=== PATIENT | male | born 1945 | race Caucasian/White ===

== ENCOUNTER 2016-09-23 08:52 | Inpatient (IN) | payer OTHER ==
[2016-09-23 11:00] VITALS: BMI 20.5
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
[2016-09-23] MEDS ORDERED: IBUPROFEN 400 MG TABLET (FP) PO PRN (13:13)
[2016-09-23] MEDS ORDERED: ACETAMINOPHEN 325 MG TABLET (FP) PO PRN (13:13)
[2016-09-23] MEDS ORDERED: diphenhydrAMINE HCL 50 MG CAPSULE PO PRN (13:13)
[2016-09-23] MEDS ORDERED: P-EPHED 60MG/TRIPROLIDI 2.5MG TABLET PO PRN (13:13)
[2016-09-23] MEDS ORDERED: LOPERAMIDE HCL 2 MG CAPSULE PO PRN (13:13)
[2016-09-23] MEDS ORDERED: guaiFENesin/D-METHORPHAN HB 10 ML UNIT-DOSE CUPS PO PRN (13:13)
[2016-09-23] MEDS ORDERED: MAGNESIUM HYDROX 2400MG/30ML ORAL SUSPENSION 30 ML CUP PO PRN (13:13)
[2016-09-23] MEDS ORDERED: MENTHOL/PHENOL 1 EACH UD MM PRN (13:13)
[2016-09-23] MEDS ORDERED: MAGNESIUM CITRATE 300 ML BOTTLE PO PRN (13:13)
[2016-09-23] MEDS ORDERED: chlordiazePOXIDE HCL 25 MG CAPSULE PO PRN (13:13)
[2016-09-23] MEDS ORDERED: MAG HYDROX/AL HYDROX/SIMETH 30 ML UNIT-DOSE CUP PO PRN (13:13)
[2016-09-23] MEDS ORDERED: hydrOXYzine PAMOATE 50 MG CAPSULE (FP) PO PRN (13:13)
[2016-09-23] MEDS ORDERED: chlordiazePOXIDE HCL 25 MG CAPSULE PO ONE (14:00)
[2016-09-23] MEDS: chlordiazePOXIDE HCL 25 MG CAPSULE PO SCH ×2 (17:23→22:15)
[2016-09-23 17:49] LABS: URINE APPEARANCE CLEAR; URINE BILIRUBIN NEGATIVE (NEGATIVE); URINE BLOOD NEGATIVE (NEGATIVE); URINE COLOR LTYELLOW; URINE GLUCOSE (UA) 1+ (NEGATIVE); URINE KETONE NEGATIVE (NEGATIVE); URINE LEUK ESTERASE NEGATIVE (NEGATIVE); URINE NITRITE NEGATIVE (NEGATIVE); URINE PROTEIN NEGATIVE (NEGATIVE); URINE UROBILINOGEN NEGATIVE E.U./dl (0.2-1.0)
[2016-09-23] MEDS: THIAMINE HCL 100 MG TABLET (FP) PO SCH (22:16)
[2016-09-24] MEDS: chlordiazePOXIDE HCL 25 MG CAPSULE PO SCH ×4 (05:24→22:14)
[2016-09-24 10:02] LABS: MCH 31.8 pg (25.7-33.7); MCHC 33.5 g/dl (32.0-35.9); MEAN CELL VOLUME 95.1 fl (80-96); PLATELET COUNT 250 K/MM3 (134-434); WHITE BLOOD COUNT 9.6 K/mm3 (4.0-10.0)
[2016-09-24] MEDS: PRENATAL VITAMINS W/ FOLIC ACID TABLET (FP) PO SCH (10:14)
--- NOTE | 2016-09-24 10:17 | PN ---
S CIWA - CIWA Score Nausea/Vomitin-No Nausea/No Vomiting Muscle Tremors: 3 Anxiety: 4-Mod. Anxious/Guarded Agitation: 4-Moderately Restless Paroxysmal Sweats: 3 Orientation: 0-Oriented Tacttile Disturbances: 0-None Auditory Disturbances: 0-None Visual Disturbances: 0-None Headache: 0-None Present CIWA-Ar Total Score: 14 BHS Progress Note (SOAP) Subjective: shakes little sweats anxious right wrist pain Objective: 09/24/16 10:15 Vital Signs Temperature 97.0 F L 09/24/16 06:00 Pulse Rate 76 09/24/16 06:00 Respiratory Rate 16 09/24/16 06:00 Blood Pressure 112/65 09/24/16 06:00 O2 Sat by Pulse Oximetry (%) Laboratory Tests 09/23/16 09/24/16 13:00 06:00 WBC 9.6 RBC 5.10 Hgb 16.2 Hct 48.5 MCV 95.1 MCHC 33.5 RDW 14.0 Plt Count 250 MPV 9.0 Urine Color Ltyellow Urine Appearance Clear Urine pH 5.0 D Ur Specific [place] 1.010 Urine Protein Negative Urine Glucose (UA) 1+ H Urine Ketones Negative Urine Blood Negative Urine Nitrite Negative Urine Bilirubin Negative Urine Urobilinogen Negative Ur Leukocyte Esterase Negative rest labs pending awake/alert ambulating no acute distress Assessment: 09/24/16 10:16 withdrawal sx Plan: continue detox increase fluids x-ray of hand
[2016-09-24 10:28] LABS: ALK PHOS 88 U/L (45-117); ANION GAP 12 (8-16); BILIRUBIN,TOTAL 0.9 mg/dL (0.2-1.0); CALCIUM 9.9 mg/dL (8.5-10.1); CO2 27 mmol/L (21-32); COCKROFT - GAULT 53.34; CREATININE 1.1 mg/dL (0.7-1.3); GLUCOSE,RANDOM 93 mg/dL (74-106); SGOT/AST 72 U/L (15-37); SGPT/ALT 82 U/L (12-78); TOT PROT 8.7 g/dl (6.4-8.2)
--- NOTE | 2016-09-24 11:19 | EKG ---
Test Reason : Blood Pressure : / mmHG Vent. Rate : 081 BPM Atrial Rate : 081 BPM P-R Int : 132 ms QRS Dur : 086 ms QT Int : 392 ms P-R-T Axes : 049 035 044 degrees QTc Int : 455 ms NORMAL SINUS RHYTHM POSSIBLE LEFT ATRIAL ENLARGEMENT NO PREVIOUS ECGS AVAILABLE Confirmed by MATHIEU ANDERS MD ([id number]) on 09/24/2016 11:19:18 AM Referred By: Confirmed By:MATHIEU ANDERS MD
--- NOTE | 2016-09-24 17:04 | PN ---
BHS Progress Note Note: pt's right wrist report shows fracture d/t a fall at home; report given to SAMANTHA Rangel for further evaluation.
--- NOTE | 2016-09-24 17:08 | CONSULT ---
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 Substance Abuse History: - Smoking Cessation. Smoking history: Current every day smoker. Have you smoked in the past 12 months: Yes. Aproximately how many cigarettes per day: 10. Hx Chewing Tobacco Use: No. Initiated information on smoking cessation: Yes. 'Breaking Loose' booklet given: 09/23/16. - Substance & Tx. History. Hx Alcohol Use: Yes. Hx Substance Use: No. Substance Use Type : Alcohol. Hx Substance Use Treatment: Yes. - Substances Abused. Alcohol. Route: Oral. Frequency: Daily. Amount used: 1/4 of a liter of vodka and 6pk beer. Age of first use: 16. Date of Last Use: 09/22/16. Confirmed by patient. Medical History: Patient endorses good general health.Noted history of arthritis. Psychiatric History: No reported history of psychiatric hospitalizations.No history of psychiatric OPD care.Mr Henrique denies past exposure to psychotropic medications.He denies history of suicide attempts. Physical/Sexual Abuse/Trauma History: No history. Additional Comment: Urine Drug Screen Results: BZO-Benzodiazepines.Noted. Mental Status Exam - Mental Status Exam Alert and Oriented to: Time, Place, Person Cognitive Function: Good Patient Appearance: Well Groomed (small stature,frali habitus) Mood: Withdrawn, Anxious (mildly) Affect: Appropriate, Normal Range Patient Behavior: Fatigued, Cooperative Speech Pattern: Clear, Appropriate Voice Loudness: Normal Thought Process: Goal Oriented Thought Disorder: Not Present Hallucinations: Denies Suicidal Ideation: Denies Homicidal Ideation: Denies Insight/Judgement: Fair Sleep: Fair Muscle strength/Tone: Normal Gait/Station: Normal Psychiatric Findings - Problem List (Jbphh 1, 2,3) (1) Alcohol dependence with uncomplicated withdrawal Current Visit: Yes Status: Acute (2) Nicotine dependence Current Visit: Yes Status: Acute Qualifiers: Nicotine product type: cigarettes Substance use status: uncomplicated Qualified Code(s): F17.210 - Nicotine dependence, cigarettes, uncomplicated (3) Injury of right hand Current Visit: Yes Status: Chronic Qualifiers: Encounter type: initial encounter Qualified Code(s): S69.91XA - Unspecified injury of right wrist, hand and finger(s), initial encounter Comment: fell yesterday brusied arm able to move arm and fingers. - Initial Treatment Plan Initial Treatment Plan: Psychoeducation.Detoxification.Observation.
[2016-09-24] MEDS: THIAMINE HCL 100 MG TABLET (FP) PO SCH (22:13)
[2016-09-25] MEDS: chlordiazePOXIDE HCL 25 MG CAPSULE PO SCH ×2 (05:55→10:27)
[2016-09-25] MEDS: PRENATAL VITAMINS W/ FOLIC ACID TABLET (FP) PO SCH (10:27)
--- NOTE | 2016-09-25 13:33 | PN ---
[facility] CIWA - CIWA Score Nausea/Vomitin Muscle Tremors: 3 Anxiety: 3 Agitation: 2 Paroxysmal Sweats: 1-Minimal Palms Moist Orientation: 0-Oriented Tacttile Disturbances: 1-Very Mild Itch/Numbness Auditory Disturbances: 1-Very Mild Visual Disturbances: 1-Very Mild Sensitivity Headache: 2-Mild CIWA-Ar Total Score: 17 S Progress Note (SOAP) Subjective: ALERT,IRRITABLE,ANXIOUS,INTERRUPTED SLEEP,TREMOR,RIGHT HAND WITH SPLINT AND ARM SLING MOVEMENT OF FINGERS NO LIMITATION,NO SWELLING Objective: 09/25/16 13:35 Vital Signs Temperature 98.6 F 09/25/16 10:36 Pulse Rate 84 09/25/16 10:36 Respiratory Rate 16 09/25/16 10:36 Blood Pressure 123/72 09/25/16 10:36 O2 Sat by Pulse Oximetry (%) Laboratory Last Values WBC 9.6 K/mm3 (4.0-10.0) 09/24/16 06:00 RBC 5.10 M/mm3 (4.00-5.60) 09/24/16 06:00 Hgb 16.2 GM/dL (11.7-16.9) 09/24/16 06:00 Hct 48.5 % (35.4-49) 09/24/16 06:00 MCV 95.1 fl (80-96) 09/24/16 06:00 MCHC 33.5 g/dl (32.0-35.9) 09/24/16 06:00 RDW 14.0 % (11.9-15.9) 09/24/16 06:00 Plt Count 250 K/MM3 (134-434) 09/24/16 06:00 MPV 9.0 fl (7.5-11.1) 09/24/16 06:00 Sodium 142 mmol/L (136-145) 09/24/16 06:00 Potassium 4.4 mmol/L (3.5-5.1) 09/24/16 06:00 Chloride 103 mmol/L (98-107) 09/24/16 06:00 Carbon Dioxide 27 mmol/L (21-32) 09/24/16 06:00 Anion Gap 12 (8-16) 09/24/16 06:00 BUN 9 mg/dL (7-18) 09/24/16 06:00 Creatinine 1.1 mg/dL (0.7-1.3) 09/24/16 06:00 Creat Clearance w eGFR > 60 (>60) 09/24/16 06:00 Random Glucose 93 mg/dL (74-106) 09/24/16 06:00 Calcium 9.9 mg/dL (8.5-10.1) 09/24/16 06:00 Total Bilirubin 0.9 mg/dL (0.2-1.0) 09/24/16 06:00 AST 72 U/L (15-37) H 09/24/16 06:00 ALT 82 U/L (12-78) H 09/24/16 06:00 Alkaline Phosphatase 88 U/L (45-117) 09/24/16 06:00 Total Protein 8.7 g/dl (6.4-8.2) H 09/24/16 06:00 Albumin 5.0 g/dl (3.4-5.0) 09/24/16 06:00 Urine Color Ltyellow 09/23/16 13:00 Urine Appearance Clear 09/23/16 13:00 Urine pH 5.0 (5.0-8.0) D 09/23/16 13:00 Ur Specific [place] 1.010 (1.005-1.025) 09/23/16 13:00 Urine Protein Negative (NEGATIVE) 09/23/16 13:00 Urine Glucose (UA) 1+ (NEGATIVE) H 09/23/16 13:00 Urine Ketones Negative (NEGATIVE) 09/23/16 13:00 Urine Blood Negative (NEGATIVE) 09/23/16 13:00 Urine Nitrite Negative (NEGATIVE) 09/23/16 13:00 Urine Bilirubin Negative (NEGATIVE) 09/23/16 13:00 Urine Urobilinogen Negative E.U./dl (0.2-1.0) 09/23/16 13:00 Ur Leukocyte Esterase Negative (NEGATIVE) 09/23/16 13:00 RPR Titer Nonreactive (NONREACTIVE) 09/24/16 06:00 09/25/16 13:37 EKG NSR Assessment: 09/25/16 13:37 WITHDRAWAL SYMPTOM Plan: CONTINUE DETOX
[2016-09-25] MEDS: chlordiazePOXIDE 5 MG CAPSULE PO SCH ×2 (17:32→22:15)
[2016-09-25] MEDS: THIAMINE HCL 100 MG TABLET (FP) PO SCH (22:14)
[2016-09-26] MEDS: chlordiazePOXIDE 5 MG CAPSULE PO SCH ×2 (06:20→10:01)
--- NOTE | 2016-09-26 09:19 | PN ---
S Progress Note (SOAP) Subjective: ALERT,NO COMPLAINT Objective: 09/26/16 09:12 Vital Signs Temperature 97.9 F 09/26/16 06:58 Pulse Rate 70 09/26/16 06:58 Respiratory Rate 16 09/26/16 06:58 Blood Pressure 139/84 09/26/16 06:58 O2 Sat by Pulse Oximetry (%) PATIENT IS STABLE FOR DISCHARGE TODAY 09/26/16 09:19 09/26/16 09:19 Assessment: 09/26/16 09:19 NO WITHDRAWAL SYMPTOM 09/26/16 09:19 Plan: DISCHARGE TO DAY,FOLLOW UP WITH AFTER CARE PROGRAM ARRANGEMENT AND HAND SPECIALIST FOR FOLLOW UP EVALUATION FOR HAND INJURY
--- NOTE | 2016-09-26 09:27 | DS ---
[facility] Detox Discharge Summary Admission Date: 09/23/16 Discharge Date: 09/26/16 - History Present History: Alcohol Dependence Additional Comments: FOLLOW UP WITH AFTER CARE PROGRAM ARRANGEMENT AND TO SEE HAND SPECIALIST AND ORTHOPEDIST FOR EVALUATION AND TREATMENT OF INJURY TO RIGHT WRIST AND HAND APPOINTMENT Pertinent Past History: NICOTINE DEPENDENCE INJURY OF RIGHT HAND AND RIGHT WRIST HISTORY OF FRACTURE OF RIGHT WRIST - Physical Exam Results Vital Signs: Vital Signs Temperature 97.9 F 09/26/16 06:58 Pulse Rate 70 09/26/16 06:58 Respiratory Rate 16 09/26/16 06:58 Blood Pressure 139/84 09/26/16 06:58 O2 Sat by Pulse Oximetry (%) Pertinent Admission Physical Exam Findings: WITHDRAWAL SYMPTOM - Treatment Hospital Course: Detox Protocol Followed, Detoxed Safely, Responded well, Discharged Condition Good Patient has Accepted a Rehab Referral to: DECLINED - Medication Discharge Medications: Ambulatory Orders NK [No Known Home Medication] 09/23/16 - Diagnosis (1) Alcohol dependence with uncomplicated withdrawal Current Visit: Yes Status: Acute (2) Nicotine dependence Current Visit: Yes Status: Acute Qualifiers: Nicotine product type: cigarettes Substance use status: uncomplicated Qualified Code(s): F17.210 - Nicotine dependence, cigarettes, uncomplicated (3) Injury of right hand Current Visit: Yes Status: Chronic Qualifiers: Encounter type: initial encounter Qualified Code(s): S69.91XA - Unspecified injury of right wrist, hand and finger(s), initial encounter (4) Alcohol dependence Current Visit: No Status: Active (5) Distal radius fracture, right Current Visit: No Status: Acute - AMA Did Patient Leave Against Medical Advice: No
[2016-09-26] MEDS: PRENATAL VITAMINS W/ FOLIC ACID TABLET (FP) PO SCH (10:01)
[2016-09-26 10:20] VITALS: BP 129/84; PULSE 90; TEMP 98.5
[2016-09-26] MEDS ORDERED: chlordiazePOXIDE HCL 10 MG CAPSULE PO SCH (17:00)
== END 2016-09-26 10:12 | disposition home or self-care (01) | DRG 897 ==
LOC: YASAS 08:52 → Y6N 12:11
PROVIDERS: ADMIT Internal Medicine Addiction Medicine; ATTEND Internal Medicine Addiction Medicine
PROC: HZ2ZZZZ Detoxification Services for Substance Abuse Treatment (ICD-10-PCS; principal; 2016-09-26)
DX: F10.230 Alcohol dependence with withdrawal, uncomplicated (principal); S52.531A Colles' fracture of right radius, initial encounter for closed fracture; F17.210 Nicotine dependence, cigarettes, uncomplicated; F32.9 Major depressive disorder, single episode, unspecified; W19.XXXA Unspecified fall, initial encounter; Y93.89 Activity, other specified
CPT/HCPCS: 36415; 73110-TC-RT; 73130-TC-RT; 80053; 81003; 85027; 86593; 93005; 93010

== ENCOUNTER 2016-09-24 18:13 | Emergency (ER) | payer OTHER ==
[2016-09-24 18:18] VITALS: BP 123/76; PULSE 73; TEMP 98.3; BMI 20.5
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
== END 2016-09-24 20:35 | disposition other institution (70) ==
LOC: JERFT 18:13
PROC: 2W3CX1Z Immobilization of Right Lower Arm using Splint (ICD-10-PCS; principal; 2016-09-24)
DX: S52.531A Colles' fracture of right radius, initial encounter for closed fracture (principal); F10.20 Alcohol dependence, uncomplicated; F17.210 Nicotine dependence, cigarettes, uncomplicated; W19.XXXA Unspecified fall, initial encounter; Y93.89 Activity, other specified; Y92.89 Other specified places as the place of occurrence of the external cause
CPT/HCPCS: 29125; 99281-25